=== PATIENT | female | born 1950 | race Caucasian/White ===

== ENCOUNTER 2021-02-06 04:38 | Emergency (ER) | payer MEDICAID, OTHER ==
[~2021-02-06] VITALS: Ht 170.2 cm; Wt 104.3 kg
[~2021-02-06 04:38] MED LIST: AMLO-489 PO; ASPI-543 PO; CHOL20007 OR; CHOL20007 PO; CLON0.2D6 PO; ENAL2.5T7 PO; FLUT1SPR5; GLIP5TAB12 PO; METF-370 PO; METO-159 PO; METO25TA5 PO; PIO30T PO; PRAV20TA3 PO; TRAM50TA2 PO; TRAZ50TA2 PO
[2021-02-06] MEDS ORDERED: SODIUM BICARBONATE 8.4% INJ 50ML SYRINGE IV ONE (04:39)
[2021-02-06] MEDS ORDERED: CALCIUM CHLOR(10%) 100MG/ML 10ML SYRINGE IV ONE (04:39)
[2021-02-06] MEDS ORDERED: EPINEPHrine HCL 1 MG/10 ML SYRG IV ONE (04:39)
[2021-02-06] MEDS ORDERED: InsuLIN REG 1unit/0.01ml Soln (100units/ml) ONE (04:46)
[2021-02-06 04:48] VITALS: BP 0/0
== END 2021-02-06 05:01 ==
LOC: EDBD 04:38 → ER 04:38
DX: I46.9 Cardiac arrest, cause unspecified (principal); J96.90 Respiratory failure, unspecified, unspecified whether with hypoxia or hypercapnia; I10 Essential (primary) hypertension; E11.9 Type 2 diabetes mellitus without complications; Z87.891 Personal history of nicotine dependence
CPT/HCPCS: 31500; 92950; 99285; J0171; J1815